=== PATIENT | male | born 1940 | race Caucasian/White ===

== ENCOUNTER 2017-01-09 | Outpatient (CLI) | payer MEDICARE, OTHER | END 2017-01-09 21:39 | disposition critical access hospital (66) | CPT/HCPCS: A0425; A0427 ==

== ENCOUNTER 2017-01-09 22:04 | Inpatient (IN) | payer MEDICARE, OTHER ==
[2017-01-10] MEDS ORDERED: ACETAMINOPHEN 325 MG TABLET PO PRN (00:10)
[2017-01-10] MEDS ORDERED: ONDANSETRON 4 MG/2 ML VIAL IVP PRN (00:10)
[2017-01-10] MEDS ORDERED: SODIUM CHLORIDE FLUSH 0.9% 10 ML SYRINGE IVP PRN (00:10)
[2017-01-10] MEDS ORDERED: MORPHINE 2 MG/ML SYRINGE IVP PRN (00:10)
[2017-01-10] MEDS ORDERED: HYDROcod/ACETAM 5/325 MG TABLET PO PRN (00:10)
[2017-01-10] MEDS ORDERED: cefTRIAXone 1 GM in SODIUM CHLORIDE 0.9% MINIBAG 100 ML IV SCH (01:00)
[2017-01-10] MEDS ORDERED: HEPARIN 5,000 UNIT/ML VIAL SUBQ SCH (01:20)
[2017-01-10] MEDS ORDERED: AZITHROMYCIN 250 MG TABLET PO STA (01:22)
[2017-01-10] MEDS: FUROSEMIDE 40 MG/4 ML VIAL IVP SCH ×2 (02:02→09:07)
[2017-01-10] MEDS ORDERED: LORazepam 2 MG/ML SYRINGE IVP SCH (04:45)
[2017-01-10] MEDS ORDERED: SODIUM CHLORIDE FLUSH 0.9% 10 ML SYRINGE IVP SCH (06:00)
[2017-01-10] MEDS ORDERED: ASPIRIN 325 MG TABLET PO SCH (08:00)
[2017-01-10] MEDS ORDERED: HEPARIN 5,000 UNIT/ML VIAL IVP ONE ×2 (08:00→09:00)
[2017-01-10] MEDS ORDERED: HEPARIN 25,000 UNITS/500 ML 500 ML IV SCH (08:30)
[2017-01-10] MEDS ORDERED: POLYETHYLENE GLYCOL 3350 17 GM PACKET PO SCH (09:00)
[2017-01-10] MEDS ORDERED: METOPROLOL TARTRATE 50 MG TABLET PO SCH (09:00)
[2017-01-10] MEDS ORDERED: LISINOPRIL 20 MG TABLET PO SCH (09:00)
[2017-01-10] MEDS: INSULIN ASPART 300 UNIT/3 ML PEN SUBQ SCH ×2 (09:06→14:34)
[2017-01-10] MEDS ORDERED: ATORVASTATIN 40 MG TABLET PO SCH (21:00)
== END 2017-01-10 14:30 | disposition short-term general hospital (02) | DRG 811 ==
PROC: 30233N1 Transfusion of Nonautologous Red Blood Cells into Peripheral Vein, Percutaneous Approach (ICD-10-PCS; principal; 2017-01-10)
DX: D64.9 Anemia, unspecified (principal); I21.4 Non-ST elevation (NSTEMI) myocardial infarction; J96.01 Acute respiratory failure with hypoxia; N17.9 Acute kidney failure, unspecified; Z79.82 Long term (current) use of aspirin; Z79.4 Long term (current) use of insulin; R91.8 Other nonspecific abnormal finding of lung field; R05 Cough; E11.9 Type 2 diabetes mellitus without complications; Z82.49 Family history of ischemic heart disease and other diseases of the circulatory system; Z80.9 Family history of malignant neoplasm, unspecified; Z87.891 Personal history of nicotine dependence; E87.5 Hyperkalemia; E78.5 Hyperlipidemia, unspecified; Z98.890 Other specified postprocedural states; I11.0 Hypertensive heart disease with heart failure; I50.9 Heart failure, unspecified

== ENCOUNTER 2017-01-10 | Outpatient (CLI) | payer MEDICARE, OTHER | END 2017-01-10 14:13 | disposition short-term general hospital (02) | DX: I21.4 Non-ST elevation (NSTEMI) myocardial infarction (principal) | CPT/HCPCS: A0170; A0425; A0426 ==